=== PATIENT | male | born 1985 | race Caucasian/White ===

== ENCOUNTER 2025-01-24 19:41 | Emergency (ER) | payer MEDICAID, OTHER ==
[~2025-01-24] VITALS: Ht 177.8 cm; Wt 75.0 kg
[~2025-01-24 19:41] MED LIST: KEP500T PO
[2025-01-24 19:54] VITALS: BP 121/78; PULSE 70; RESP 18; O2SAT 98
--- NOTE | 2025-01-24 20:31 | RADIOLOGY REPORT ---
CLINICAL INDICATION: Swelling TECHNIQUE: 3 views DI HAND, COMPLETE (3VW MIN) Comparison: None FINDINGS: No acute fracture or dislocation. Normal osseous mineralization. No significant degenerative change. Mild soft tissue swelling suspected dorsal to the metacarpals. IMPRESSION: 1. No acute osseous abnormality of the right hand.
--- NOTE | 2025-01-24 22:00 | Physician Documentation ---
History of Present Illness ~ Chief Complaint: Hand pain Stated Complaint: SWOLLEN HAND Time Seen by MD: 21:40 Primary Medical Doctor: none Tetanus within 5 years: No Medication Reconciliation Allergies: Coded Allergies: No Known Allergies (Unverified , 05/13/16) Scheduled Levetiracetam (Keppra), 1 TAB PO Q12H Past Medical History Past Medical History: Seizures, Hemorrhoids Past Surgical History: no surgical history Alcohol Use: Occasionally Drug Use: marijuana Lives with: Family Lives In: Home Occupation: employed Review of Systems ROS As stated above in the HPI, otherwise all systems are reviewed and negative. Physical Exam Vital Signs: Temperature: 98.9, Source: Temporal, Heart Rate: 70, Respiratory Rate: 18, BP: 121/78, Pulse Oximetry: 98, Weight: 75.000 Physical Exam VITALS: Reviewed and as above. GENERAL: Alert, no apparent distress. HEENT: Normocephalic, atraumatic, PERRL, EOMI, dry mucosa, no erythema RESPIRATORY: Lungs clear, normal breath sounds, no respiratory distress. CHEST: No accessory muscle use, no retractions CV: Regular rate, rhythm, no edema, no murmur, No: JVD GI: Soft, non-tender, bowels sounds present, no rebound, guarding, or rigidity BACK: No CVA tenderness, or swelling MUSCULOSKELETAL No deformities, edema noted to the dorsal aspect of the right hand, reduced range of motion noted in the right wrist during examination. SKIN: Warm and dry, no rash NEURO: Oriented x4, No motor or sensory deficit PSYCH: Normal mood and affect, no agitation Progress Results/Orders Results/Orders Orders - MATTIE LÓPEZ Hand, Complete (3vw Min) (01/24/25 19:59) Completed Orders - MATTIE LÓPEZP Hand, Complete (3vw Min) (01/24/25 19:59) Acetaminophen 325mg Tablet (Tylenol Tabl (01/24/25 19:59) Medications Received in ER Medications (Trade) Dose Ordered Sig/Tonja Route PRN Reason Start Time Stop Time Status Last Admin Dose Admin (Tylenol tablet) 1,000 mg ONCE STAT PO 01/24/25 19:59 01/24/25 20:01 DC 01/24/25 20:05 975 MG Vital Signs 01/24/25 19:54 Temp 98.9 Pulse 70 Resp 18 B/P (MAP) 121/78 Pulse Ox 98 Medical Decision Making Additional information obtaine: other Findings Medical Decision-Making (MDM) Discharge Summary Patient: 39-year-old male Presenting Complaint: Right hand pain and dorsal swelling radiating into the wrist Imaging: X-ray negative for acute injury; findings suggestive of arthritic changes in the hand Occupational Context: Patients occupation involves repetitive hand use, consistent with overuse injury and development of arthritis. Assessment: Overuse injury and hand arthritis, supported by radiographic findings and occupational risk factors. No evidence of acute fracture or other emergent pathology. Management: Nonoperative treatment recommended: NSAIDs as needed for pain and inflammation. Topical diclofenac (Voltaren gel) is advised, as topical NSAIDs are first-line for hand osteoarthritis due to efficacy and lower risk of systemic adverse effects compared to oral NSAIDs. Voltaren gel dosin g applied to the affected hand up to four times daily (maximum 8 g/day per hand). Dean wrap applied for comfort and mild immobilization. Splinting and activity modification are evidence-based for symptom relief in hand arthritis and overuse injuries.[2] Patient education: Advised to avoid activities that exacerbate symptoms and to use NSAIDs/topical diclofenac as directed. Instructed to follow up with primary care for ongoing management and to return to the ED for worsening symptoms or new concerning findings. Disposition: Patient is stable for discharge. No acute intervention required at this time. Referral to hand specialist if symptoms persist beyond 6 weeks of nonoperative management or if functional impairment develops. Follow-up: Primary care provider for continued evaluation and management. Return to ED for escalation of symptoms or new concerns. Clinical Rationale: Radiography is appropriate for initial evaluation of chronic hand pain; further imaging (MRI/US) reserved for persistent or unclear cases. Topical NSAIDs are recommended prior to oral NSAIDs for hand osteoarthritis due to favorable safety profile. Nonoperative management is standard for mild, early-stage disease. General Diff Dx:Considerations: Include: Abrasion, Contusion, Fracture, Hematoma, Laceration, Malunion, Neurovascular injury, Open fracture, Sprain, Ulcer, Other Shoulder Diff Dx:Consideration: Include: AC separation, Adhesive capsulitis, Arthritis, Bicipital tendonitis, Calcific tendonitis, Cervical disc disease, Contusion, Dislocation, Fracture-humerus, Fracture-scapula, Fracture-clavicle, GB disease, Hematoma, Impingement syndrome, Myocardial infarction, Neurovascular injury, Open fracture-humerus, Open fracture-scapula, Open fracture-clavicle, Rotator cuff injury, SC dislocatoin, Sprain, Subacromial bursitis, Other Elbow Diff Dx:Considerations: Include: Abrasion, Arthritis, Contustion, DJD, Fracture-humerus, Fracture-radial head, Fracture-radius, Fracture-ulna, Gout, Hematoma, Laceration, Neurovascular injury, Olecranon bursitis, Open fracture, Osteomyelitis, Radial head subluxation, Rheumatoid arthritis, Septic, Sprain, Ulcer, Other Wrist Diff Dx:Considerations: Include: Abrasion, Arthritis, DJD, Gout, Rheumatoid, Septic, Carpal tunnel snydrome, Contusion, Dislocation, Fracture-carpal, Fracture-radius, Fracture-ulna, Ganglion, Laceration, Neurovascular injury, Open fracture, Strain, Other Hand Diff Dx:Considerations: Include: Abrasion, Arthritis, Contusion, DJD, Felon, Fracture-carpal, Fracture-metacarpal, Fracture-phalynx, Fracture-radius, Fracture-ulna, Gout, Hematoma, Herpetic fritz, Laceration, Neurovascular injury, Open fracture, Paronychia, Rheumatoid arthritis, Septic, Sprain, Subungual hematoma, Tenosynovitis, Volar plate injury, Cellulitis, Malunion, O ther Finger Diff Dx:Considerations: Include: Abrasion, Cellulitis, Contusion, Dislocation, Fracture, Hematoma, Laceration, Neurovascular injury, Open fracture, Subungual hematoma, Other Departure Disposition: 01 HOME / SELF CARE / HOMELESS Impression: Primary Impression: Overuse injury Additional Impression: Arthritis Condition: Stable Discharge Instructions: Arthritis, Nonspecific Additional Instructions: You were seen today for right hand pain and swelling. Your X-rays did not show any broken bones, but did suggest some arthritis. Your symptoms are likely due to overuse and arthritis in your hand. What you should do at home: Pain relief: You may use nonsteroidal anti-inflammatory drugs (NSAIDs) like ibuprofen or naproxen as needed for pain, unless you have been told by a doctor to avoid these medicines. NSAIDs help reduce pain and swelling. Use the lowest effective dose for the shortest time needed. Voltaren gel (diclofenac): This is a topical NSAID that can be applied directly to your hand and wrist. Use 2 grams (about a fingertip unit) on the affected area up to four times daily, but do not exceed 8 grams per day for your hand and wrist. Wash your hands after applying, unless your hands are the treated area. Wait at least one hour before washing the treated area.[8] Dean wrap: You may keep your hand wrapped for comfort. Remove the wrap if it feels too tight or causes numbness or tingling. Activity modification: Try to avoid activities that make your pain worse, especially repetitive gripping, pinching, or heavy lifting. Use tools or devices to help with tasks when possible. Exercise: Gentle hand exercises may help with stiffness and function. If you are unsure which exercises to do, ask your primary care provider or a hand therapist for guidance. Heat: Applying a warm pack to your hand for 10-15 minutes may help with pain and stiffness. Follow-up and when to seek help: Follow up with your primary care provider for ongoing management and to discuss further treatment options if needed. Return to the emergency department if you notice any new or worsening symptoms, such as increasing pain, swelling, redness, warmth, fever, numbness, or trouble moving your fingers. If your symptoms do not improve after 6 weeks of home care, or if you have trouble using your hand, you may need to see a hand specialist. Other important information: NSAIDs can cause stomach upset, kidney problems, or increase bleeding risk. Do not use NSAIDs if you have a history of stomach ulcers, kidney disease, or are on blood thinners, unless approved by your doctor. If you have questions about your medications or care, contact your primary care provider. You are stable for discharge today. Departure Forms: Excuse form Work or School Excused From: Work Excuse beginning now through the following date: Jan 29, 2025 May Return but still avoid physical Activity from now until: Jan 29, 2025 May Return to full physical activity as of: Jan 29, 2025 Referrals: NO PRIMARY CARE PROVIDER (PCP) Education Educated: Patient Educated regarding: diagnosis, treatment, need for follow up Signature Scribe Signature: A Attestation: Scribed for Mattie López by LASHAY Maldonado . 01/24/25 22:00 MATTIE LÓPEZ Jan 24, 2025 22:00
[2025-01-24 22:45] VITALS: TEMP 98.9
== END 2025-01-24 22:45 | disposition home or self-care (01) ==
LOC: ER 19:41
DX: S69.91XA Unspecified injury of right wrist, hand and finger(s), initial encounter (principal); M19.041 Primary osteoarthritis, right hand; F12.90 Cannabis use, unspecified, uncomplicated; X58.XXXA Exposure to other specified factors, initial encounter; Y93.89 Activity, other specified; Y92.89 Other specified places as the place of occurrence of the external cause; Y99.8 Other external cause status
CPT/HCPCS: 73130; 99283; A6449